=== PATIENT | male | born 1980 | race African-American/Black ===

== ENCOUNTER 2021-12-17 13:51 | Emergency (ER) | payer MEDICAID, OTHER ==
[~2021-12-17] VITALS: Ht 177.8 cm; Wt 160.0 kg
[~2021-12-17 13:51] MED LIST: ALBU6.7H9 INH; AMLO10TA80 PO; BENZ-16 MT; DEXA6TAB MT
[2021-12-17 15:23] LABS: BASOPHILS % 0.6 % (0.0-2.0); EOSINOPHILS % 2.8 % (0.0-5.0); HEMATOCRIT. 44.5 % (42.0-52.0); LYMPHOCYTES % 26.8 % (20.0-50.0); MEAN CORPUSCULAR HEMOGLOBIN 28.7 pg (28.0-32.0); MEAN CORPUSCULAR VOLUME 84.8 fL (80.0-94.0); MEAN PLATELET VOLUME 8.3 fl (7.4-10.4); MONOCYTES % 7.5 % (2.0-8.0); NEUTROPHILS % 62.3 % (40.0-76.0); PLATELET 286 x1000/uL (130-400); RED BLOOD CELL COUNT 5.24 mill/uL (4.7-6.1); RED CELL DISTRIBUTION WIDTH 15.3 % (11.6-14.6)
[2021-12-17 15:31] LABS: CHLORIDE 109 mEq/L (98-107)
[2021-12-17 16:03] LABS: PROTHROMBIN TIME 10.4 sec (9.6-11.0)
[2021-12-17 16:36] VITALS: BP 145/89
== END 2021-12-17 16:37 | disposition home or self-care (01) ==
LOC: ER 15:07
DX: R04.0 Epistaxis (principal); B34.9 Viral infection, unspecified; Z20.822 Contact with and (suspected) exposure to COVID-19
CPT/HCPCS: 36415; 71045; 80053; 85025; 85610; 87426; 99284; Z7610

== ENCOUNTER 2023-03-17 06:29 | Emergency (ER) | payer OTHER ==
[~2023-03-17] VITALS: Ht 177.8 cm; Wt 170.0 kg
[~2023-03-17 06:29] MED LIST changes: +ALBU6.7H3 INH; -ALBU6.7H9 INH
[2023-03-17 06:38] VITALS: O2SAT 96
[2023-03-17] MEDS ORDERED: TOPUD PO (08:14)
[2023-03-17 08:34] VITALS: BP 138/91; PULSE 95; RESP 17; TEMP 98.5
== END 2023-03-17 08:37 | disposition home or self-care (01) ==
LOC: ER 06:29
DX: M79.10 Myalgia, unspecified site (principal); M25.562 Pain in left knee; M25.572 Pain in left ankle and joints of left foot; Z79.899 Other long term (current) drug therapy
CPT/HCPCS: 73560; 73600; 99284

== ENCOUNTER 2023-07-27 13:26 | Emergency (ER) | payer OTHER ==
[~2023-07-27] VITALS: Ht 180.3 cm; Wt 150.0 kg
[~2023-07-27 13:26] MED LIST changes: +TOPUD PO
[2023-07-27 13:37] VITALS: TEMP 98.6; O2SAT 97
[2023-07-27] MEDS ORDERED: KETOROLAC 30MG/ML VIAL IM ONE (13:45)
[2023-07-27] MEDS ORDERED: LIDO700A15 TP (16:03)
[2023-07-27] MEDS ORDERED: NAPR-1176 MT (16:03)
[2023-07-27] MEDS ORDERED: KETOROLAC 30MG/ML VIAL IM NR (17:00)
[2023-07-27 17:24] VITALS: BP 165/106; PULSE 76; RESP 18
== END 2023-07-27 17:24 | disposition home or self-care (01) ==
LOC: ER 13:36
DX: M47.892 Other spondylosis, cervical region (principal)
CPT/HCPCS: 99284; 72050; 73030; 96372; J1885